=== PATIENT | female | born 1955 ===

== ENCOUNTER 2016-06-25 18:26 | Emergency (ER) | payer BC ==
[2016-06-25 18:46] VITALS: BP 152/100
--- NOTE | 2016-06-25 19:40 | ERNOTE ---
Medical Problem HPI - Narrative Date of Service: 06/25/16 - General Chief Complaint: General Assessment Source: patient - Immun/Allergies/Home Medications Immunizations: IMMUNIZATION HX Immunizations Up to Date No History of Influenza Vaccine No Hx Pneumococcal Vaccination No Allergies/Adverse Reactions: Allergies No Known Allergies Allergy (Unverified 06/25/16 18:39) Home Medications: HOME MEDICATIONS Cephalexin [Keflex] 500 mg PO QID #40 capsule 06/25/16 [Last Taken Unknown] Ibuprofen [Motrin] 800 mg PO TID PRN #30 tab 06/25/16 [Last Taken Unknown] - History of Present History Narrative: right sided pain in area just posterior to patient's right ear. Also some numbness and tingling in mandibular and maxillary branches of right facial nerve since 1700 today Timing: constant Review of Systems - Review of Systems Constitutional: Present: no symptoms reported EYE: Present: no symptoms reported ENT: Present: See HPI Respiratory: Present: no symptoms reported Cardiology: Present: no symptoms reported Gastrointestinal/Abdominal: Present: no symptoms reported - Patient's Past Medical History Patient History - Medical: No pertinent hx Patient History - Cardiac/Respiratory: No pertinent hx Patient History - Cancer: No Hx of Cancer Patient History - Surgical Procedures: Hysterectomy Patient History - Other: None LMP (females 10-50): Menopausal - Social History Living Situations: home Abuse History: No History of abuse Psych History: No pertinent hx Smoking Status: Never smoker Have you smoked in the past 12 months: No Do you dip or chew tobacco: No Patient requests Smoking Cessation Consult: No Initiate information on Smoking Cessation: No Alcohol Use: none Drug Use: none - Immunizations Immunizations Up to Date: No Hx Pneumococcal Vaccination: No History of Influenza Vaccine: No Physical Exam - Physical Exam General Appearance: Present: wd/wn, alert, no apparent distress Eye Exam: Normal inspection: bilateral, PERRL: bilateral, EOMI: bilateral Ears, Nose, Throat: Present: normal ENT inspection, hearing grossly normal, other - patient is point tender in the right mastoid area, I do not see any vesicular lesions or redness at this time and pt has normal facies and sensation is normal in both sides of face, TMs are normal and visio nand ophtho exam is normal bilaterall. She is VERY tender when I palpate the right mastoid region Neck: Present: normal inspection, nontender, supple, full range of motion Respiratory: Present: no respiratory distress, normal breath sounds, no accessory muscle use, chest nontender, lungs clear Cardiovascular/Chest: Present: regular rate, rhythm, no murmur, normal peripheral pulses Back Exam: Present: normal inspection Extremity Exam: Present: normal inspection Neurological Exam: Present: alert, oriented ED Progress - Vital Signs Patient's Vital Signs:: I have reviewed the patient's vital signs. Vital Signs: Vital Signs 06/25/16 18:39 Temperature 35.8 C L Pulse Rate 79 Respiratory 18 Rate Blood Pressure 152/100 O2 Sat by Pulse 99 Oximetry - Progress/Reassessment Chief Complaint: General Assessment Departure - Departure Clinical Impression: Mastoiditis Qualifiers: Laterality: right Qualified Code(s): H70.91 - Unspecified mastoiditis, right ear Disposition: Home self-care Condition: Good Instructions: Mastoiditis, Pediatric Prescriptions: Cephalexin [Keflex] 500 mg PO QID #40 capsule Ibuprofen [Motrin] 800 mg PO TID PRN #30 tab PRN Reason: Pain
== END 2016-06-25 20:59 | disposition home or self-care (01) ==
LOC: ER 18:26
DX: H70.91 Unspecified mastoiditis, right ear (principal)